=== PATIENT | female | born 1995 | race Asian ===

== ENCOUNTER 2019-09-24 19:34 | Emergency (ER) | payer MEDICAID ==
[~2019-09-24] VITALS: Ht 152.4 cm; Wt 68.9 kg
[2019-09-24 19:39] VITALS: Ht 152.4 cm; Wt 68.9 kg
[2019-09-24 20:12] LABS: RED CELL DISTRIBUTION WIDTH 11.8 % (11.5-14.5)
[2019-09-24 20:20] LABS: PLATELET COUNT 408 x10^3mcL (130-400)
[2019-09-24 20:53] LABS: BAND NEUTROPHIL 3 % (0-10); MONOCYTE 6 % (0-7); SEGMENTED NEUTROPHILS 77 % (37-75)
[2019-09-24 20:54] LABS: PLATELET MORPHOLOGY PLATELETS NORMAL; rbc morphology (normal/abnorm) NORMAL (NORMAL)
[2019-09-24 20:56] LABS: CALCIUM 8.4 mg/dL (8.5-10.1); CARBON DIOXIDE 23.3 mmol/L (21-32); CHLORIDE SERUM 101 mmol/L (98-107); CREATININE SERUM 0.9 mg/dL (0.6-1.0); GFR1 > 60 mL/min; GLUCOSE SERUM 91 mg/dL (74-106); POTASSIUM SERUM 3.8 mmol/L (3.5-5.1); SODIUM SERUM 136 mmol/L (136-145)
[2019-09-24 21:00] LABS: ALBUMIN 3.9 g/dL (3.4-5.0); ALKALINE PHOSPHATASE 62 U/L (46-116); ALT/SGPT 35 U/L (14-59); AST/SGOT 18 U/L (15-37); BILIRUBIN TOTAL 0.7 mg/dL (0.20-1.00); LIPASE 159 IU/L (73-393); TOTAL PROTEIN, SERUM 7.8 g/dL (6.4-8.2)
[2019-09-24 21:03] LABS: AMPHETAMINE QUAL UR NONE DETECTED (See below)
[2019-09-24 21:41] VITALS: BP 101/80
== END 2019-09-24 21:41 | disposition home or self-care (01) ==
LOC: ED 19:34
PROVIDERS: Emergency Medicine
DX: R07.89 Other chest pain (principal)
CPT/HCPCS: 36415; Q0092